=== PATIENT | male | born 1990 | race Two or more races ===

== ENCOUNTER 2016-05-30 09:38 | Emergency (ER) | payer BC ==
[~2016-05-30] VITALS: Ht 172.7 cm; Wt 70.3 kg
[~2016-05-30 09:38] MED LIST: BACTRIM DS TAB1 EAC1 ORAL; CEPHALEXIN500 MG ORAL
[2016-05-30 09:41] VITALS: BP 124/77
[2016-05-30] MEDS ORDERED: NKM (09:44)
[2016-05-30] MEDS ORDERED: AUGMENTIN 875-1 EAC1 ORAL (09:58)
[2016-05-30] MEDS ORDERED: Augmentin 875mg Tab ORAL ONE (10:00)
[2016-05-30] MEDS ORDERED: TdaP Vaccine 0.5ml Syr IM ONE (10:00)
[2016-05-30 10:10] VITALS: BP 124/77
--- NOTE | 2016-05-30 11:20 | Emergency Room Report ---
History of Present Illness General Chief Complaint: Animal Bite Source: Patient Present Illness HPI 26-year-old male presents ED status post cat bite. States that he was trying to help a stray cat and the cat bit him. Patient states he was wearing gloves. States that the cat bit him on the middle finger right hand. Tetanus unknown. Happened earlier today. Noted bleeding initially which has resolved. Pain is throbbing, 5 at 10, nonradiating. No aggravating relieving factors. Denies fevers or chills. Denies Discharge. Denies any other associated symptoms Allergies: Coded Allergies: No Known Allergies (Unverified , 05/17/15) Patient History Past Medical History: none Past Surgical History: none Pertinent Family History: none Social History: Denies: alcohol use, drug use, smoking Immunizations: UTD Reviewed Nursing Documentation: PMH: Agreed, PSxH: Agreed Nursing Documentation-PMH Past Medical History: No Stated History Review of Systems All Other Systems: negative except mentioned in HPI Physical Exam Vital Signs Date Time Temp Pulse Resp B/P Pulse Ox O2 Delivery O2 Flow Rate FiO2 05/30/16 09:41 97.9 57 16 124/77 99 Room Air Sp02 EP Interpretation: reviewed, normal General Appearance: no apparent distress, alert, GCS 15, non-toxic Head: normocephalic Eyes: bilateral eye PERRL, bilateral eye normal inspection ENT: normal ENT inspection Neck: normal inspection Respiratory: normal inspection Cardiovascular #1: normal inspection Gastrointestinal: normal inspection Rectal: deferred Genitourinary: no CVA tenderness Musculoskeletal: back normal, gait/station normal, normal range of motion, non- tender Neurologic: alert, oriented x3, responsive, motor strength/tone normal, sensory intact, speech normal Psychiatric: normal inspection Skin: normal color, no rash, warm/dry, well hydrated Lymphatic: no adenopathy Medical Decision Making Diagnostic Impression: Primary Impression: Cat bite Qualified Codes: W55.01XA - Bitten by cat, initial encounter ER Course Hospital Course 26-year-old M presents ED c/o R finger pain s/p cat bite Differential diagnoses include: abscess, cellulitis, ankle fracture, dislocation Clinical course Patient placed on stretcher. After initial history, physical and reveals a young male in no acute distress. The finger in question I do not identify any skin break. Bleeding likely came from underneath the nailbed. No active bleeding at this time. No obvious skin break. However given story we will treat as animal bite after finger is irrigated. I ordered Tdap, Abx Diagnosis - cat bite Stable and discharged to home with prescription Rx augmentin. Followup with PMD. Return to ED if symptoms recur or worsen Last Vital Signs Date Time Temp Pulse Resp B/P Pulse Ox O2 Delivery O2 Flow Rate FiO2 05/30/16 10:10 97.9 57 16 124/77 99 Room Air Status: improved Disposition: HOME, SELF-CARE Condition: Stable Scripts Amoxicillin/Potassium Clav 875-125* (AUGMENTIN 875-125 TABLET*) 1 Each Tablet 1 TAB ORAL TWICE A DAY, #14 TAB Prov: TANNER LATHAM M.D. 05/30/16 Referrals: NOT CHOSEN IPA/,REFERRING (PCP) Patient Instructions: Animal Bite, [id number] TANNER LATHAM M.D. May 30, 2016 11:20
== END 2016-05-30 10:10 | disposition home or self-care (01) ==
LOC: EMR 09:54
DX: S61.252A Open bite of right middle finger without damage to nail, initial encounter (principal); Z23 Encounter for immunization; W55.01XA Bitten by cat, initial encounter; Y92.9 Unspecified place or not applicable; Y99.8 Other external cause status
CPT/HCPCS: 90471; 90715; 99283